=== PATIENT | male | born 1955 | race Caucasian/White ===

== ENCOUNTER 2021-02-01 15:44 | Emergency (ER) | payer OTHER ==
[~2021-02-01] VITALS: Ht 162.6 cm; Wt 56.7 kg
--- NOTE | 2021-02-01 15:50 | NUR ---
Patient to ER bed 1 to gown for evaluation. Side rails up. Report given to JORGE TORRES.
--- NOTE | 2021-02-01 15:55 | NUR ---
Pt bib ACLS after being found wondering in the [address] and ALOC. Pt has trach in place, PEG tube noted with dressing clean dry and intact. V/S stable, no acute distress noted.
[2021-02-01 15:58] VITALS: BP_SYST 116
--- NOTE | 2021-02-01 16:00 | NUR ---
ER Dr. Aguilar at bedside examining patient.
--- NOTE | 2021-02-01 16:24 | NUR ---
Respiratory at bedside for breathing treatment and trach suction.
[2021-02-01 16:27] LABS: BASOPHILS % (AUTO) 0.3 % (0.0-2.0); EOSINOPHILS % (AUTO) 0.7 % (0.0-4.0); HEMATOCRIT 36.2 % (36-54); HEMOGLOBIN 12.1 g/dL (14.0-18.0); LYMPHOCYTES # (AUTO) 0.3 K/uL (1.0-5.5); LYMPHOCYTES % (AUTO) 5.1 % (20.5-51.5); MEAN CORPUSCULAR HEMOGLOBIN 29 pg (27-31); MEAN CORPUSCULAR HGB CONC 33 % (32-36); MEAN CORPUSCULAR VOLUME 86 fL (79.0-98.0); MONOCYTES # (AUTO) 0.4 K/uL (0.0-1.0); MONOCYTES % (AUTO) 6.1 % (1.7-9.3); NEUTROPHILS # (AUTO) 5.8 K/uL (1.8-7.7); NEUTROPHILS % (AUTO) 87.8 % (40.0-70.0); PLATELET COUNT (AUTO) 167 K/uL (130-430); RED BLOOD CELL COUNT(AUTO) 4.22 MIL/uL (4.2-6.2); RED CELL DISTRIBUTION WIDTH 15.8 % (9.0-15.0); WHITE BLOOD COUNT (AUTO) 6.6 K/uL (4.8-10.8)
--- NOTE | 2021-02-01 16:35 | NUR ---
Radiology at bedside for CXR
[2021-02-01 16:51] LABS: INR 1.1 (0.80-1.20); PROTHROMBIN TIME 11.2 SECS (9.5-12.5)
[2021-02-01 18:58] LABS: ALBUMIN 2.9 g/dL (3.4-4.8); CALCIUM 8.8 mg/dL (8.4-11.0); CREATININE 0.89 mg/dL (0.55-1.30); TOTAL BILIRUBIN 1.9 mg/dL (0.0-1.0)
--- NOTE | 2021-02-01 19:06 | NUR ---
Care of patient endorsed to MELISSA Rosas. Pt currently resting in bed, no acute distress noted.
[2021-02-01] MEDS ORDERED: ASPIRIN 325 MG TABLET (ECOTRIN) PO ONE (19:39)
[2021-02-01] MEDS ORDERED: ASPIRIN 325 MG TABLET ONE (19:39)
--- NOTE | 2021-02-01 19:45 | NUR ---
Called supervisor [employer] for [employer].
[2021-02-01 19:49] VITALS: BP_SYST 116
--- NOTE | 2021-02-01 19:49 | NUR ---
Patient given written and verbal discharge instructions and verbalizes understanding. ER MD discussed with patient the results and treatment provided. Patient in stable condition. ID arm band removed. No Rx given. Patient educated on pain management and to follow up with PMD. Pain Scale 0/10. Opportunity for questions provided and answered. Medication side effect fact sheet provided.
--- NOTE | 2021-02-01 21:02 | NUR ---
Patient escorted to Taxi cab.
== END 2021-02-01 19:49 | disposition home or self-care (01) ==
LOC: SED 15:44
DX: R06.02 Shortness of breath (principal)
CPT/HCPCS: 36415; 71045; 80053; 83880; 84484; 85025; 85610-TC; 85730-TC; 93005; 99285